=== PATIENT | male | born 1995 | race Caucasian/White ===

== ENCOUNTER 2018-03-17 23:37 | Emergency (ER) | payer SELFPAY ==
[~2018-03-17] VITALS: Ht 177.8 cm; Wt 101.7 kg
[2018-03-17 23:42] VITALS: BP 136/82
== END 2018-03-18 00:42 | disposition home or self-care (01) ==
LOC: ED 23:37
DX: L02.211 Cutaneous abscess of abdominal wall (principal); L60.0 Ingrowing nail
CPT/HCPCS: J2001